=== PATIENT | female | born 1970 | race Caucasian/White ===

== ENCOUNTER → 2017-07-14 | Outpatient (CLI) | payer OTHER ==
--- NOTE | 2017-07-14 12:31 | RAD ---
EXAM: Chest 2 views. HISTORY: Cough and fever. COMPARISON: None. FINDINGS: Frontal and lateral views of the chest are obtained. There are no confluent infiltrates. There is no pneumothorax or pleural effusion. The heart is not enlarged. IMPRESSION: 1. No confluent infiltrates.
== END | disposition home or self-care (01) ==
LOC: DXRAD 10:34
PROVIDERS: ATTEND Physician Assistant
DX: R05 Cough (principal); R50.9 Fever, unspecified
CPT/HCPCS: 71020